=== PATIENT | male | born 1985 | race Caucasian/White ===

== ENCOUNTER 2019-01-07 09:09 | Emergency (ER) | payer OTHER ==
[~2019-01-07] VITALS: Ht 182.9 cm; Wt 81.8 kg
[~2019-01-07 09:09] MED LIST: IBUP-1051 PO; QUET200T PO; RISP1TAB13 PO; ZIPR20CA2 PO
[2019-01-07] MEDS ORDERED: normal saline 1000ML IV soln IV ONE (09:20)
--- NOTE | 2019-01-07 09:38 | NUR ---
poison control called Medardo at states that we should draw a mag, CPK, and hemoglobin anemia level in addition to the labs currently running. He states that we should watch out for reflex tachycardia, qt prolongation, seizures. Currently he recommends supporative care. a Q 3 HR aspirin level with chemistry level should be drawn. As well as a 4 hr tylenol level from time of ingestion. If his level is greater than 150 mg/dl he should be treated. Provider Noe notified.
[2019-01-07 09:50] LABS: BASOPHILS # (AUTO) 0.1 X10'3 (0-0.2); BASOPHILS % (AUTO) 0.9 % (0-1); EOSINOPHILS # (AUTO) 0.2 X10'3 (0-0.9); HEMATOCRIT 41.7 % (42.0-52.0); LYMPHOCYTES # (AUTO) 1.2 X10'3 (1.1-4.8); LYMPHOCYTES % (AUTO) 13.3 % (21-51); MEAN CORPUSCULAR HGB CONC 33.6 g/dL (33.0-36.5); MEAN CORPUSCULAR VOLUME 95.2 FL (78-98); MEAN PLATELET VOLUME 7.2 FL (7.4-10.4); MONOCYTES # (AUTO) 0.9 X10'3 (0-0.9); MONOCYTES % (AUTO) 10.1 % (2-12); NEUTROPHILS # (AUTO) 6.4 X10'3 (1.8-7.7); NEUTROPHILS % (AUTO) 73.7 % (42-75); PLATELET COUNT 397 X10'3 (140-440); RED BLOOD COUNT 4.38 X10'6 (4.70-6.10); RED CELL DISTRIBUTION WIDTH 13.4 % (11.5-14.5); WHITE BLOOD COUNT 8.7 X10'3 (4.5-11.0)
[2019-01-07 09:50] LABS: ABG BASE EXCESS -4.6 mmol/L (-2.0-3.0); ABG HCO3 18.7 mmol/L (22.0-26.0); ABG PCO2 (T) 29.1 mmHg (35.0-48.0); ABG PH (T) 7.422 (7.350-7.450); ABG PO2 (T) 107.8 mmHg (83-108); ALLEN'S TEST Positive; FCOHb 2.2 % (0.5-1.5); FMetHb 0.1 % (0.3-1.12); FO2Hb 95.7 % (94-100); PATIENT TEMPERATURE 36.1; TOTAL HEMOGLOBIN 14.5 G/dl (14.0-18.0)
--- NOTE | 2019-01-07 09:58 | NUR ---
sailaja salter at bedside.
[2019-01-07 10:11] LABS: ACETAMINOPHEN < 2.0 UG/ML (10-30); ALANINE AMINOTRANSFERASE 24 U/L (12-78); ALBUMIN 4.3 G/DL (3.4-5.0); ALBUMIN/GLOBULIN RATIO 1.3 (1.1-1.5); ALKALINE PHOSPHATASE 86 IU/L (46-116); ANION GAP 9 (8-16); ASPARTATE AMINO TRANSFERASE 21 U/L (10-37); BILIRUBIN,TOTAL 0.6 MG/DL (0.1-1.0); BLOOD UREA NITROGEN 25 MG/DL (7-18); BUN/CREATININE RATIO 22.1 (5.4-32.0); CALCIUM 8.8 MG/DL (8.5-10.1); CHLORIDE 104 MMOL/L (99-107); CREATININE 1.13 MG/DL (0.60-1.10); GLUCOSE 97 MG/DL (70-104); POTASSIUM 3.4 MMOL/L (3.5-5.1); SODIUM 137 MMOL/L (135-145); TOTAL CARBON DIOXIDE 24.3 MMOL/L (24-32); TOTAL PROTEIN 7.6 G/DL (6.4-8.2); eGFR 75 ML/MIN
[2019-01-07 10:17] LABS: ETHANOL < 0.010 GM/DL (0.0-0.010)
[2019-01-07 11:06] LABS: CREATINE KINASE 200 U/L (39-308); MAGNESIUM 1.6 MG/DL (1.5-2.4)
[2019-01-07 11:51] LABS: CLARITY,URINE CLEAR (Clear); COLOR,URINE YELLOW (Yellow); GLUCOSE, URINE NEGATIVE (Neg); KETONES,URINE 15 mg/dl (Neg); LEUKOCYTE ESTERASE ,URINE NEGATIVE (Neg); NITRITES, URINE NEGATIVE (Neg); OCCULT BLOOD,URINE TRACE-INTACT (Neg); PROTEIN,URINE NEGATIVE (Neg); UROBILINOGEN,URINE 0.2 E.U/dL (0.2-1.0)
[2019-01-07 11:52] LABS: UA COLLECTION TYPE NON-SPECIFIED
[2019-01-07 11:55] LABS: SQUAMOUS EPITHELIAL CELL,UR FEW /LPF (FEW)
[2019-01-07 11:56] LABS: BACTERIA,URINE 1+ /HPF (Neg); CAL OXALATE CRYSTALS 4+ /HPF (NEGATIVE); MUCUS STRANDS MODERATE /LPF (Neg); RBC,URINE 0-2 /HPF (0-2); WBC,URINE 0-4 /HPF (0-4)
[2019-01-07 11:57] LABS: FINE GRANULAR CAST 0-3 /LPF (NEGATIVE)
[2019-01-07 12:07] LABS: URINE AMPHETAMINE SCREEN POSITIVE (Neg); URINE BARBITUATE SCREEN NEGATIVE (Neg); URINE BENZODIAZEPINES SCREEN NEGATIVE (Neg); URINE CANNABINOID SCREEN POSITIVE (Neg); URINE COCAINE SCREEN NEGATIVE (Neg); URINE METHADONE SCREEN NEGATIVE (Neg); URINE OPIATE SCREEN NEGATIVE (Neg); URINE PHENCYCLIDINE SCREEN NEGATIVE (Neg)
[2019-01-07 12:09] LABS: ACETAMINOPHEN < 2.0 UG/ML (10-30)
--- NOTE | 2019-01-07 12:30 | NUR ---
pt came from room 8 in main er to er overflow room 24
--- NOTE | 2019-01-07 15:10 | NUR ---
Poison Control called to check on patients status and lab levels.
--- NOTE | 2019-01-07 15:36 | NUR ---
ROBIN(MOM) PHONE NUMBER [phone]
--- NOTE | 2019-01-07 18:10 | NUR ---
pt going to resp pad at 2000
--- NOTE | 2019-01-07 20:22 | NUR ---
The patient has been resting on his bed. He is delusional and is talking about waiting for the government to give him a large sum of money. He has been cooperative. He is unable to answer questions appropriately. His family did come in and visit him and brought him a small bag of clothes for when he leaves the hospital.
[2019-01-07 20:42] VITALS: BP 135/72
== END 2019-01-07 20:46 ==
LOC: ER 09:10
DX: T43.592A Poisoning by other antipsychotics and neuroleptics, intentional self-harm, initial encounter (principal); T39.012A Poisoning by aspirin, intentional self-harm, initial encounter; T39.1X2A Poisoning by 4-Aminophenol derivatives, intentional self-harm, initial encounter; R40.20 Unspecified coma; F20.9 Schizophrenia, unspecified; F15.10 Other stimulant abuse, uncomplicated; F41.9 Anxiety disorder, unspecified; F17.200 Nicotine dependence, unspecified, uncomplicated; F12.90 Cannabis use, unspecified, uncomplicated; Z88.0 Allergy status to penicillin; Z88.1 Allergy status to other antibiotic agents; Z88.6 Allergy status to analgesic agent; Z79.1 Long term (current) use of non-steroidal anti-inflammatories (NSAID); Z79.899 Other long term (current) drug therapy; Z59.0 Homelessness; Z60.2 Problems related to living alone; Z98.890 Other specified postprocedural states; Y92.89 Other specified places as the place of occurrence of the external cause
CPT/HCPCS: 36415; 36600; 71045; 80053; 80305; 80320; 80329; 81001; 82550; 82803; 82948; 83605; 83735; 84443; 85018; 85025; 87040; 93005; 99291; J7030

== ENCOUNTER 2020-07-30 14:06 | Inpatient (IN) | payer MEDICAID ==
[~2020-07-30] VITALS: Ht 182.9 cm; Wt 84.0 kg
--- NOTE | 2020-07-30 14:20 | NUR ---
patient to radiology.
--- NOTE | 2020-07-30 14:20 | NUR ---
patient back in the room.
[2020-07-30 14:46] LABS: BASOPHILS # (AUTO) 0.1 X10'3 (0-0.2); BASOPHILS % (AUTO) 1.1 % (0-1); EOSINOPHILS # (AUTO) 0.1 X10'3 (0-0.9); HEMOGLOBIN 14.5 g/dl (14.0-17.9); LYMPHOCYTES # (AUTO) 1.3 X10'3 (1.1-4.8); LYMPHOCYTES % (AUTO) 12.9 % (21-51); MEAN CORPUSCULAR HEMOGLOBIN 32.5 PG (27.0-31.0); MEAN CORPUSCULAR HGB CONC 34.4 g/dL (33.0-36.5); MEAN CORPUSCULAR VOLUME 94.3 FL (78-98); MEAN PLATELET VOLUME 7.1 FL (7.4-10.4); MONOCYTES # (AUTO) 0.8 X10'3 (0-0.9); MONOCYTES % (AUTO) 8.1 % (2-12); NEUTROPHILS % (AUTO) 76.9 % (42-75); PLATELET COUNT 390 X10'3 (140-440); RED BLOOD COUNT 4.46 X10'6 (4.70-6.10); RED CELL DISTRIBUTION WIDTH 13.3 % (11.5-14.5); WHITE BLOOD COUNT 10.3 X10'3 (4.5-11.0)
[2020-07-30 14:50] LABS: CLARITY,URINE CLOUDY (Clear); GLUCOSE, URINE NEGATIVE (Neg); KETONES,URINE 15 mg/dl (Neg); LEUKOCYTE ESTERASE ,URINE NEGATIVE (Neg); NITRITES, URINE POSITIVE (Neg); OCCULT BLOOD,URINE TRACE-INTACT (Neg); PH,URINE 5.5 (4.8-8.0); PROTEIN,URINE 30 mg/dl (Neg); UROBILINOGEN,URINE 0.2 E.U/dL (0.2-1.0)
[2020-07-30 14:53] LABS: COLOR,URINE DARK YELLOW (Yellow); UA COLLECTION TYPE CLN CATCH MIDSTREAM
[2020-07-30 14:57] LABS: BACTERIA,URINE 4+ /HPF (Neg); MUCUS STRANDS MANY /LPF (Neg); RBC,URINE 0-2 /HPF (0-2); SQUAMOUS EPITHELIAL CELL,UR FEW /LPF (FEW); WBC,URINE 50-100 /HPF (0-4)
[2020-07-30 14:58] LABS: SPERM MODERATE /HPF (NEGATIVE); URINE AMPHETAMINE SCREEN POSITIVE (Neg); URINE BARBITUATE SCREEN NEGATIVE (Neg); URINE BENZODIAZEPINES SCREEN NEGATIVE (Neg); URINE CANNABINOID SCREEN POSITIVE (Neg); URINE COCAINE SCREEN NEGATIVE (Neg); URINE METHADONE SCREEN NEGATIVE (Neg); URINE OPIATE SCREEN NEGATIVE (Neg); URINE PHENCYCLIDINE SCREEN NEGATIVE (Neg); WBC CLUMPS,URINE MODERATE /HPF (NEGATIVE)
[2020-07-30] MEDS ORDERED: CefTRIAXone 2gm/D5W 50ml BAG 50 ML IV ONE (15:05)
[2020-07-30 15:06] LABS: ALANINE AMINOTRANSFERASE 26 U/L (12-78); ALBUMIN 4.7 G/DL (3.4-5.0); ALBUMIN/GLOBULIN RATIO 1.5 (1.1-1.5); ALKALINE PHOSPHATASE 90 IU/L (46-116); ANION GAP 14 (8-16); ASPARTATE AMINO TRANSFERASE 27 U/L (10-37); BILIRUBIN,TOTAL 0.8 MG/DL (0.1-1.0); BLOOD UREA NITROGEN 25 MG/DL (7-18); BUN/CREATININE RATIO 20.5 (5.4-32.0); CALCIUM 9.3 MG/DL (8.5-10.1); CHLORIDE 102 MMOL/L (99-107); CREATININE 1.22 MG/DL (0.60-1.10); GLUCOSE 86 MG/DL (70-104); POTASSIUM 3.9 MMOL/L (3.5-5.1); SODIUM 141 MMOL/L (135-145); TOTAL CARBON DIOXIDE 24.8 MMOL/L (24-32); TOTAL PROTEIN 7.9 G/DL (6.4-8.2); eGFR 68 ML/MIN
[2020-07-30 15:10] LABS: CREATINE KINASE 311 U/L (39-308); ETHANOL < 0.010 GM/DL (0.0-0.010)
[2020-07-30] MEDS ORDERED: ringers solution, lacted 1,000 ML IV ONE (15:15)
[2020-07-30] MEDS ORDERED: potassium Cl 40MEQ/1/2NS 520ml 520 ML IV PRN ×2 (15:30)
[2020-07-30] MEDS ORDERED: magnesium Cl slow-release 64mg tablet PO PRN (15:30)
[2020-07-30] MEDS ORDERED: ondansetron/PF 4mg/2ml inj IV PRN (15:30)
[2020-07-30] MEDS ORDERED: magnesium 4gm in 100ml NS 100 ML IV PRN (15:30)
[2020-07-30] MEDS ORDERED: acetaminophen 325mg tablet PO PRN (15:30)
[2020-07-30] MEDS ORDERED: magnesium 2GM in 50ml NS 50 ML IV PRN (15:30)
[2020-07-30] MEDS ORDERED: normal saline 1000ml 1,000 ML IV SCH (15:30)
[2020-07-30] MEDS ORDERED: potassium Cl 20 mEq SR tablet PO PRN ×2 (15:30)
[2020-07-30] MEDS ORDERED: famotidine 20mg tablet PO ONE (15:40)
--- NOTE | 2020-07-30 18:32 | NUR ---
Patient in room ED 4. I have received report from GAURANG VILLA RN and had the opportunity to ask questions and will assume patient care upon arrival to room 355a. Addendum: 07/30/20 at 1833 by Dione Lorenzo RN Amended: Links added.
[2020-07-30 20:00] VITALS: BP 132/85
[2020-07-30] MEDS ORDERED: K and/or MAG REPLACEMENT MC SCH (20:00)
[2020-07-30] MEDS ORDERED: levoFLOXACIN-Levaquin 500mg/D5 100 ML IV SCH (20:25)
--- NOTE | 2020-07-30 22:20 | NUR ---
pt threatened to go ama if he did not get food tonight. Dr Whitlock notified and received a diet order than npo after midnight. pt ate after getting the order 2 turkey sandwiches, 3 jellos, 6 juices and then he answered admit questions, but refused a MRSA swab and said it been a few years since he has had his medications.
[2020-07-30] MEDS ORDERED: NO HOME MEDS (23:03)
--- NOTE | 2020-07-30 23:45 | NUR ---
pt aware he is no longer able to eat or drink.
[2020-07-31] VITALS: BP 110/67
--- NOTE | 2020-07-31 03:30 | NUR ---
pt had a shower for preop surgical prep. pt npo.
--- NOTE | 2020-07-31 04:00 | NUR ---
pt thinks he can poop it out tried to talk staff into giving him water to drink. explained what would happen with the co2 container and flash light in him can do and that we have xrays showing them in him, pt started pulling at his face at the sink saying he is taking the nahun wings off his face and arms that stefanie and another name is doing this to him and that we are talking with him, i stressed my concern for his safety and explained he can use the bathroom and don't flush it. he got dressed in pants watched him before going into the bathroom before able to stop him saw him gulp down water from the sink.
--- NOTE | 2020-07-31 04:35 | NUR ---
pt walked out of the bathroom said he got it out. pt handed Rn a bedpan with co2 cartridge and a flashight device and noted traces of blood on co2 cartridge pt insistent on leaving hospital ama.
--- NOTE | 2020-07-31 04:45 | NUR ---
pt iv dc'd intact after he signed [address] papers continue to explain importance for him to stay depite pooping cartridge and flashlight out and putting it in a bedpan for Rn. double bagged then put at station and security called to walk pt out and Dr Whitlock notified of pt going out AMA with escort. pt dressed and at times still says pulling feathers off him that satalight dishes keeping him from seeing his and kids. 456 pt left the floor walking out with his belongings with security.
--- NOTE | 2020-07-31 04:46 | NUR ---
noted no blood at rectal opening when pt allowed Rn to check to be sure he was ok,
[2020-07-31] MEDS ORDERED: famotidine 20mg tablet PO ONE (06:00)
--- NOTE | 2020-07-31 06:10 | NUR ---
dR Howard NOTIFIED PT POOPED THE CO2 CARTRIDGE AND LIGHT OUT AND THAT THEY ARE BAGGED, HE SAID TAKE PICTURES OF THEM AND THROW THEM AWAY. PICTURES TAKEN SET FOR MD TO SEE AND SET IN THE CHART ON PROGRESS NOTES. NURSING FORKLIFT PICKER AND NURSE ADMINISTRATOR'S NOTIFIED.
== END 2020-07-31 05:00 | disposition left against medical advice (07) | DRG 351 ==
LOC: ER 14:07 → ED HOLD 15:29 → EDBEDREQ 18:15 → SUR 3N 18:40
PROVIDERS: ADMIT Internal Medicine; ATTEND Internal Medicine
DX: M79.5 Residual foreign body in soft tissue (principal); F12.10 Cannabis abuse, uncomplicated; F15.959 Other stimulant use, unspecified with stimulant-induced psychotic disorder, unspecified; F17.210 Nicotine dependence, cigarettes, uncomplicated; Z20.828 Contact with and (suspected) exposure to other viral communicable diseases; F20.9 Schizophrenia, unspecified; Z60.2 Problems related to living alone; Z53.29 Procedure and treatment not carried out because of patient's decision for other reasons; K62.89 Other specified diseases of anus and rectum; N28.9 Disorder of kidney and ureter, unspecified; N39.0 Urinary tract infection, site not specified; F41.9 Anxiety disorder, unspecified; Z59.0 Homelessness; Z88.5 Allergy status to narcotic agent; Z88.0 Allergy status to penicillin; Z88.1 Allergy status to other antibiotic agents; Z79.899 Other long term (current) drug therapy
CPT/HCPCS: 36415; 74018; 80053; 80305; 80320; 81001; 82550; 82553; 84443; 85025; 87077; 87088; 87186; 87635; 93005; 96365; 99285; G0378; J0696; J1956; J7120

== ENCOUNTER 2020-10-09 15:51 | Emergency (ER) | payer MEDICAID ==
[~2020-10-09] VITALS: Ht 182.9 cm; Wt 78.9 kg
[~2020-10-09 15:51] MED LIST changes: -IBUP-1051 PO; +NO HOME MEDS; -QUET200T PO; -RISP1TAB13 PO; -ZIPR20CA2 PO
[2020-10-09 15:54] VITALS: BP 131/82
--- NOTE | 2020-10-09 16:35 | NUR ---
pa in room cutting off metal on his left 5th digit
[2020-10-09] MEDS ORDERED: acetaminophen 325mg tablet PO ONE (17:20)
[2020-10-09] MEDS ORDERED: CEPH250T PO (18:10)
[2020-10-09] MEDS ORDERED: TETanus/Pertussis (Acell)/Diphther VAC/PF (Tdap-Adult) 0.5ml syringe IMVAC ONE (18:10)
== END 2020-10-09 18:22 | disposition home or self-care (01) ==
LOC: ER 15:52
DX: R22.32 Localized swelling, mass and lump, left upper limb (principal); M79.645 Pain in left finger(s); F41.9 Anxiety disorder, unspecified; F20.9 Schizophrenia, unspecified; F12.90 Cannabis use, unspecified, uncomplicated; F15.90 Other stimulant use, unspecified, uncomplicated; Z72.89 Other problems related to lifestyle; Z60.2 Problems related to living alone; Z59.0 Homelessness; Z98.890 Other specified postprocedural states; Z88.5 Allergy status to narcotic agent; Z88.0 Allergy status to penicillin; Z88.1 Allergy status to other antibiotic agents; Z79.899 Other long term (current) drug therapy; W49.04XA Ring or other jewelry causing external constriction, initial encounter; Y93.89 Activity, other specified; Y92.89 Other specified places as the place of occurrence of the external cause; Y99.8 Other external cause status
CPT/HCPCS: 90471; 90715; 99284

== ENCOUNTER 2023-02-09 14:25 | Inpatient (IN) | payer MEDICAID ==
[~2023-02-09] VITALS: Ht 182.9 cm; Wt 72.3 kg
[2023-02-09 15:27] LABS: HEMOGLOBIN 14.5 g/dl (14.0-17.9); LYMPHOCYTES # (AUTO) 1.5 X10'3 (1.1-4.8)
[2023-02-09 15:29] LABS: BASOPHILS # (AUTO) 0.1 X10'3 (0-0.2); BASOPHILS % (AUTO) 1.7 % (0-1); EOSINOPHILS # (AUTO) 0.8 X10'3 (0-0.9); EOSINOPHILS % (AUTO) 12.5 % (0-6); HEMATOCRIT 43.7 % (42.0-52.0); LYMPHOCYTES % (AUTO) 23.6 % (21-51); MEAN CORPUSCULAR HEMOGLOBIN 31.5 PG (27.0-31.0); MEAN CORPUSCULAR HGB CONC 33.3 g/dL (33.0-36.5); MEAN CORPUSCULAR VOLUME 94.8 FL (78-98); MEAN PLATELET VOLUME 7.6 FL (7.4-10.4); MONOCYTES # (AUTO) 0.6 X10'3 (0-0.9); MONOCYTES % (AUTO) 10.2 % (2-12); NEUTROPHILS # (AUTO) 3.3 X10'3 (1.8-7.7); PLATELET COUNT 356 X10'3 (140-440); RED BLOOD COUNT 4.61 X10'6 (4.70-6.10); RED CELL DISTRIBUTION WIDTH 14.6 % (11.5-14.5); WHITE BLOOD COUNT 6.3 X10'3 (4.5-11.0)
[2023-02-09 15:43] LABS: ALKALINE PHOSPHATASE 84 IU/L (46-116); ASPARTATE AMINO TRANSFERASE 19 U/L (10-37); BILIRUBIN,TOTAL 0.3 MG/DL (0.1-1.0); CALCIUM 8.7 MG/DL (8.5-10.1); CHLORIDE 103 MMOL/L (99-107); ETHANOL < 0.010 GM/DL (0.0-0.010); GLUCOSE 108 MG/DL (70-104); POTASSIUM 3.6 MMOL/L (3.5-5.1); SODIUM 139 MMOL/L (135-145); TOTAL PROTEIN 6.4 G/DL (6.4-8.2)
[2023-02-09 16:02] LABS: ALANINE AMINOTRANSFERASE 22 U/L (12-78)
[2023-02-09 16:10] LABS: ANION GAP 11 (8-16); BLOOD UREA NITROGEN 23 MG/DL (7-18); BUN/CREATININE RATIO 24.2 (10.0-20.0); TOTAL CARBON DIOXIDE 24.8 MMOL/L (24-32)
[2023-02-09 16:11] LABS: ALBUMIN 3.6 G/DL (3.4-5.0); ALBUMIN/GLOBULIN RATIO 1.3 (1.1-1.5); CREATININE 0.95 MG/DL (0.60-1.10); eGFR 90 ML/MIN
--- NOTE | 2023-02-09 17:58 | NUR ---
Pt moved from ER main to ER overflow bed 22.
--- NOTE | 2023-02-09 18:00 | NUR ---
pt requested a second tray, tech faxed down to dietary for a second tray for pt.
--- NOTE | 2023-02-09 18:04 | NUR ---
Report given to RUPESH Francisco in Overflow.
--- NOTE | 2023-02-09 18:19 | NUR ---
surendra took urine to lab.
--- NOTE | 2023-02-09 18:30 | NUR ---
Assumed patient care. The patient is oriented X3, not to situation. W/D, he has good color. This patient is on a 5150 hold for 5150. Patient describes audible hallucinations, "telling me to hurt myself." Patient describes visual hallucinations, his father and his friends chasing him through the [place], etc. Patient tells this conventional underwriter that his father and all his friends, "everyone, is out to get me." The patient is cooperative with this conventional underwriter.
[2023-02-09 18:36] LABS: CLARITY,URINE SLIGHTLY CLOUDY (Clear); COLOR,URINE YELLOW (Yellow); GLUCOSE, URINE NEGATIVE (Neg); KETONES,URINE NEGATIVE (Neg); LEUKOCYTE ESTERASE ,URINE NEGATIVE (Neg); NITRITES, URINE POSITIVE (Neg); OCCULT BLOOD,URINE NEGATIVE (Neg); PROTEIN,URINE NEGATIVE (Neg); UROBILINOGEN,URINE 0.2 E.U/dL (0.2-1.0)
[2023-02-09 18:40] LABS: URINE AMPHETAMINE SCREEN POSITIVE (Neg); URINE BARBITUATE SCREEN NEGATIVE (Neg); URINE BENZODIAZEPINES SCREEN NEGATIVE (Neg); URINE CANNABINOID SCREEN POSITIVE (Neg); URINE COCAINE SCREEN NEGATIVE (Neg); URINE METHADONE SCREEN NEGATIVE (Neg); URINE OPIATE SCREEN NEGATIVE (Neg); URINE PHENCYCLIDINE SCREEN NEGATIVE (Neg)
[2023-02-09 18:45] LABS: UA COLLECTION TYPE VOIDED
[2023-02-09 18:47] LABS: BACTERIA,URINE 4+ /HPF (Neg); CAL OXALATE CRYSTALS 1+ /HPF (NEGATIVE)
[2023-02-09 18:48] LABS: RBC,URINE NONE SEEN /HPF (0-2)
[2023-02-09 18:49] LABS: MUCUS STRANDS NONE SEEN /LPF (Neg); SQUAMOUS EPITHELIAL CELL,UR NONE SEEN /LPF (FEW)
--- NOTE | 2023-02-09 19:35 | NUR ---
Patient is resting quietly, no distress. He ate dinner and was given additional snacks.
--- NOTE | 2023-02-09 20:15 | NUR ---
Client to be admitted to [facility] RM 331A for suicidal ideation per MARIO Maynard. Spoke with [facility] and am awaiting admit package.
[2023-02-09] MEDS: Melatonin 3mg tablet PO SCH (20:52)
--- NOTE | 2023-02-09 21:35 | NUR ---
Awaiting Rx from ER MD for UTI. MD is considering patients allergies and what to Rx.
--- NOTE | 2023-02-09 22:21 | NUR ---
Patient is sleeping quietly on his right side. In direct view from the nurses station.
[2023-02-09] MEDS: sulfamethoxazole/trimethoprim DS (800/160mg) tablet PO SCH (23:01)
--- NOTE | 2023-02-10 00:15 | NUR ---
Patient awoke, sat up in bed. He then returned to sleep. No distress.
--- NOTE | 2023-02-10 03:09 | NUR ---
Patient is sleeping on his left side. No distress.
[2023-02-10] MEDS ORDERED: mag hydrox/Alum hydrox/simeth 30ml oral suspension PO PRN (04:50)
[2023-02-10] MEDS ORDERED: magnesium hydroxide 30ml (MOM) UD suspension PO PRN (04:50)
[2023-02-10] MEDS ORDERED: loperamide 2mg capsule PO PRN (04:50)
[2023-02-10] MEDS ORDERED: acetaminophen 325mg tablet PO PRN ×2 (04:50)
--- NOTE | 2023-02-10 05:07 | NUR ---
SURGICAL TERRITORY MANAGER NOTE: LEGAL HOLD: 5150 for DTS REASON FOR ADMIT: Client reported suicidal ideation and paranoid delusions. Client stated "I want to run in front of a car." Client believe's he is being followed and is in danger. INTERVENTIONS: Admit assessments. RESPONSE: Client arrived on the unit at 05:08. Per Otis Augustine RN client slept 8 hours. He appeared drowsy and was taken to his room after weight and vital signs were obtained. Client was cooperative during admission. Addendum: 02/10/23 at 1224 by Sabrina Dixon RN [place] Suicide Risk Assessment was completed with pt. and he scores as a high risk, but is able to contract for safety while on the unit. This was endorsed to Kaelyn Norman 15min safety checks were ordered.
[2023-02-10 05:18] VITALS: BP 127/73
[2023-02-10 08:00] VITALS: BP 90/56
[2023-02-10] MEDS: sulfamethoxazole/trimethoprim DS (800/160mg) tablet PO SCH ×2 (08:06→20:05)
[2023-02-10] MEDS: nicotine 21mg patch - 24 hr TD SCH (08:08)
[2023-02-10] MEDS: NICOTINE POLACRILEX 2 MG LOZENGE BC PRN (12:10)
--- NOTE | 2023-02-10 16:26 | NUR ---
INFORMATION TECH NOTE: Miguel Angel LEGAL HOLD: 5150 for DTS REASON FOR ADMIT: Client reported suicidal ideation and paranoid delusions. Client stated "I want to run in front of a car." Client believe's he is being followed and is in danger. INTERVENTIONS: Medication management, calm environment, 1:1 assessment at the bedside, safe and supportive environment RESPONSE: Pt. received asleep and awoke to take his medications without hesitation. Pt. denies endorses IS without a plan, and AH stating I hear random people he also endorses VH stating I see people all around me he denies HI. Pt. has good eye contact, cooperative with staff, doesnt appear to be responding to IS. Pt. spent most of the shift out of his room sitting in common areas with hernesto. He ate all meals and was observed socializing briefly with female cohort. He took a shower, has fair hygiene, and wears unit scrubs. Plan: Medication adjustments toward mental health stabilization until safety planned. Addendum: 02/10/23 at 1720 by Jalen Guadarrama) RN FIBERGLASS AUTOBODY REPAIRER documentation: I have reviewed and agree with all interventions, assessments performed and documented by the FIBERGLASS AUTOBODY REPAIRER.
[2023-02-10] MEDS ORDERED: hydrOXYzine 25 MG tablet PO PRN (17:25)
[2023-02-10] MEDS ORDERED: quetiapine 100mg tablet PO PRN (17:25)
[2023-02-10] MEDS ORDERED: QUEtiapine 25mg tablet PO PRN (17:29)
[2023-02-10] MEDS: QUEtiapine 25mg tablet PO PRN (18:31)
[2023-02-10 19:25] VITALS: BP 122/88
[2023-02-10] MEDS: Melatonin 3mg tablet PO SCH (20:05)
--- NOTE | 2023-02-11 05:18 | NUR ---
Nursing Progress Note: Miguel Angel Problem: Client reported suicidal ideation and paranoid delusions. Client stated "I want to run in front of a car." Client believes he is being followed and is in danger. Interventions: Provided 1:1 assessment, Therapeutic conversation & active listening; Medication administration/education/monitoring, Maintained a safe & supportive environment; Clear & simple instructions; Direction & encouragement regarding performance of ADLs; monitored behaviors & maintained clear boundaries; Patient education & monitoring. Response: Received pt. at the , he stated he is having CAH and would like some medication. Pt was given PRN of Seroquel 50 mg. Pt went to bed and covered his head with a blanket. Captain Room Service had to wake pt. up to give him his HS medication. PRN of Seroquel 50mg given for insomnia. Pt said the voices were not as bad. They tell me negative things like I should kill myself or that people out there want to kill me. Pt is medication compliant tonight. Pt is isolative tonight because the voices are loud. Pt denies SI/HI/VH. Pt is paranoid as well as having CAH. Monitor for safety. Plan: Medication adjustments toward mental health stabilization until safety planned.
[2023-02-11 08:00] VITALS: BP 96/62
[2023-02-11 08:26] LABS: CHOL/HDL RATIO 2.6 (0.00-4.99); CHOLESTEROL 111 MG/DL (0-200); HDL CHOLESTEROL 43 MG/DL (35-60); HEMOGLOBIN A1C 5.6 % (4.5-6.2); LDL CHOLESTEROL 54 MG/DL (50-100); TRIGLYCERIDES 38 MG/DL (20-135)
[2023-02-11] MEDS: nicotine 21mg patch - 24 hr TD SCH (08:26)
[2023-02-11] MEDS: CARIPRAZINE 1.5 MG CAPSULE PO SCH (08:26)
[2023-02-11] MEDS: sulfamethoxazole/trimethoprim DS (800/160mg) tablet PO SCH ×2 (08:26→20:11)
--- NOTE | 2023-02-11 10:35 | NUR ---
Lab called: Pt was found to be MRSA+ from nasal swab results. Pt instructed on hand washing
[2023-02-11] MEDS: NICOTINE POLACRILEX 2 MG LOZENGE BC PRN (16:53)
--- NOTE | 2023-02-11 17:46 | NUR ---
NUCLEAR REACTOR OPERATOR NOTE: Miguel Angel LEGAL HOLD: 5150 for DTS REASON FOR ADMIT: Client reported suicidal ideation and paranoid delusions. Client stated "I want to run in front of a car." Client believes he is being followed and is in danger. INTERVENTIONS: Medication management, calm environment, 1:1 assessment at the bedside, safe and supportive environment RESPONSE: Received patient sleeping in bed at change of shift. Patient awakens for breakfast and then returns to bed for a long nap. Patient awakens and requests a shave, and he was able to shave his head and sierra. Patient was waiting for a shower. Patient states that he is suicidal and that he will take his life once he is discharged. He believes people are following him and sucking the life out of him. Discussed dangers of meth and paranoia being a side effect of meth. Patient having delusions, A/H. Informed patient that we would keep him safe on the unit, and he said thank you. Plan: Medication adjustments toward mental health stabilization until safety planned.
[2023-02-11 19:52] VITALS: BP 110/74
[2023-02-11] MEDS: QUEtiapine 25mg tablet PO PRN (20:11)
[2023-02-11] MEDS: Melatonin 3mg tablet PO SCH (20:11)
--- NOTE | 2023-02-12 04:02 | NUR ---
Nursing Progress Note: Problem: Client reported suicidal ideation and paranoid delusions. Client stated "I want to run in front of a car." Client believes he is being followed and is in danger. Interventions: Provided 1:1 assessment, Therapeutic conversation & active listening; Medication administration/education/monitoring, Maintained a safe & supportive environment; Clear & simple instructions; Direction & encouragement regarding performance of ADLs; monitored behaviors & maintained clear boundaries; Patient education & monitoring. Response: Patient is pleasant and cooperative with care; compliant with medication. Nicotine patch removed. PRN Quetiapine provided for AH provided. He denied SI, HI, VH this shift; reported auditory and tactile hallucinations of people trying to take over his body and telling him to kill himself. Patient expressed he sleeps to get away from his hallucinations. He self isolated to his room this shift. He was provided HS snack prior to bed; observed sleeping with no apparent difficulties. Plan: Medication adjustments toward mental health stabilization until safety planned.
--- NOTE | 2023-02-12 07:42 | NUR ---
Initial: Pt admit DX psychosis, SI, and meth abuse per EMR. PO ~88% avg initial regular diet meals w/ snacks meeting estimated needs. LBM 02/09 per EMR. No nutrition interventions at this time. Will continue to follow. Rec: 1. continue regular diet 2. bowel care per rx 3. weekly wt Addendum: 02/12/23 at [address] Amended: Links added.
[2023-02-12 08:00] VITALS: BP 103/60
[2023-02-12] MEDS: CARIPRAZINE 1.5 MG CAPSULE PO SCH (08:18)
[2023-02-12] MEDS: nicotine 21mg patch - 24 hr TD SCH (08:18)
[2023-02-12] MEDS: sulfamethoxazole/trimethoprim DS (800/160mg) tablet PO SCH (08:18)
--- NOTE | 2023-02-12 14:04 | NUR ---
DISCHARGE PLAN The plan is to discharge Pt. this afternoon to the [facility]. Pt plans to stay there while he gets attempts to move back to [place] where he was staying before. He needs to reach out to change his [employer]. Pt. plans to reach out to Probation and [employer] to put his plan in place while he stays at the [place]. Sarah Hernandez LCSW
[2023-02-12] MEDS ORDERED: CARI1.5C PO (14:29)
[2023-02-12] MEDS ORDERED: MELA3TAB39 PO (14:29)
[2023-02-12] MEDS ORDERED: SULF1TAB45 PO (14:29)
[2023-02-12] MEDS: NICOTINE POLACRILEX 2 MG LOZENGE BC PRN (14:35)
--- NOTE | 2023-02-12 16:48 | NUR ---
DISCHARGE: Patient discharged and escorted from the unit at approximately 1515. Discharge instructions reviewed with understanding verbalized. Personal belongings inventoried and returned to patient. He is A&O x4, calm and cooperative. Patient given bus pass ticket per request. He was escorted down to the front of the hospital by staff. Pt left without incident.
== END 2023-02-12 15:15 | disposition home or self-care (01) | DRG 751 ==
LOC: ER 14:26 → ED HOLD 20:20 → ADULT MH 02-10 04:39
PROVIDERS: ADMIT Psychiatry & Neurology Psychiatry; ATTEND Psychiatry & Neurology Psychiatry
DX: F33.2 Major depressive disorder, recurrent severe without psychotic features (principal); F22 Delusional disorders; R45.851 Suicidal ideations; Z20.822 Contact with and (suspected) exposure to COVID-19; F15.10 Other stimulant abuse, uncomplicated; F41.9 Anxiety disorder, unspecified; F17.210 Nicotine dependence, cigarettes, uncomplicated; N30.00 Acute cystitis without hematuria; Z59.00 Homelessness unspecified; Z88.0 Allergy status to penicillin; Z88.1 Allergy status to other antibiotic agents; Z91.51 Personal history of suicidal behavior; Z88.5 Allergy status to narcotic agent
CPT/HCPCS: 36415; 70450; 80053; 80061; 80305; 80320; 81001; 83036; 84443; 85025; 87077; 87081; 87088; 87186; 87811; 99285; G0378

== ENCOUNTER 2023-03-10 23:08 | Emergency (ER) | payer MEDICAID ==
[~2023-03-10] VITALS: Ht 182.9 cm; Wt 88.6 kg
[~2023-03-10 23:08] MED LIST changes: +CARI1.5C PO; +MELA3TAB39 PO; +SULF1TAB45 PO
[2023-03-10] MEDS ORDERED: olanzapine 10mg tablet PO STA (23:17)
[2023-03-10 23:26] VITALS: BP 117/84; PULSE 65; RESP 16; TEMP 98.1; O2SAT 97
== END 2023-03-11 00:16 ==
LOC: ER 23:09
DX: T18.5XXA Foreign body in anus and rectum, initial encounter (principal); F12.90 Cannabis use, unspecified, uncomplicated; F15.90 Other stimulant use, unspecified, uncomplicated; Z88.0 Allergy status to penicillin; Z88.5 Allergy status to narcotic agent; Z79.899 Other long term (current) drug therapy; Z79.2 Long term (current) use of antibiotics
CPT/HCPCS: 74018; 99283; 99284

== ENCOUNTER 2023-07-11 12:59 | Emergency (ER) | payer MEDICAID ==
[~2023-07-11] VITALS: Ht 182.9 cm; Wt 80.1 kg
[2023-07-11 13:06] VITALS: BP 158/118; PULSE 88; RESP 16; O2SAT 100
[2023-07-11] MEDS ORDERED: DOXYCYCLINE 100MG CAPSULE PO STA (14:49)
[2023-07-11] MEDS ORDERED: ibuprofen tablet 400 MG TABLET PO ONE (14:50)
[2023-07-11] MEDS ORDERED: IBUP-1984 PO (14:54)
[2023-07-11] MEDS ORDERED: DOXY-356 PO (14:54)
[2023-07-11 17:50] VITALS: TEMP 98.1
== END 2023-07-11 17:53 | disposition home or self-care (01) ==
LOC: ER 12:59
DX: K04.7 Periapical abscess without sinus (principal); F41.9 Anxiety disorder, unspecified; F15.10 Other stimulant abuse, uncomplicated; Z88.5 Allergy status to narcotic agent; Z88.0 Allergy status to penicillin; Z88.8 Allergy status to other drugs, medicaments and biological substances
CPT/HCPCS: 99283

== ENCOUNTER 2023-08-10 10:36 | Emergency (ER) | payer MEDICAID ==
[~2023-08-10] VITALS: Ht 182.9 cm; Wt 77.3 kg
[2023-08-10 11:39] LABS: BASOPHILS # (AUTO) 0.1 X10'3 (0-0.2); BASOPHILS % (AUTO) 1.3 % (0-1); EOSINOPHILS # (AUTO) 0.2 X10'3 (0-0.9); EOSINOPHILS % (AUTO) 3.4 % (0-6); HEMATOCRIT 42.3 % (42.0-52.0); HEMOGLOBIN 14.3 g/dl (14.0-17.9); LYMPHOCYTES # (AUTO) 0.9 X10'3 (1.1-4.8); LYMPHOCYTES % (AUTO) 14.3 % (21-51); MEAN CORPUSCULAR HEMOGLOBIN 32.7 PG (27.0-31.0); MEAN CORPUSCULAR HGB CONC 33.8 g/dL (33.0-36.5); MEAN CORPUSCULAR VOLUME 96.6 FL (78-98); MEAN PLATELET VOLUME 7.4 FL (7.4-10.4); MONOCYTES # (AUTO) 0.6 X10'3 (0-0.9); MONOCYTES % (AUTO) 9.2 % (2-12); NEUTROPHILS # (AUTO) 4.7 X10'3 (1.8-7.7); NEUTROPHILS % (AUTO) 71.8 % (42-75); PLATELET COUNT 412 X10'3 (140-440); RED BLOOD COUNT 4.38 X10'6 (4.70-6.10); RED CELL DISTRIBUTION WIDTH 13.2 % (11.5-14.5); WHITE BLOOD COUNT 6.5 X10'3 (4.5-11.0)
[2023-08-10 11:39] LABS: URINE AMPHETAMINE SCREEN NEGATIVE (Neg); URINE BARBITUATE SCREEN NEGATIVE (Neg); URINE BENZODIAZEPINES SCREEN NEGATIVE (Neg); URINE CANNABINOID SCREEN POSITIVE (Neg); URINE COCAINE SCREEN NEGATIVE (Neg); URINE METHADONE SCREEN NEGATIVE (Neg); URINE OPIATE SCREEN NEGATIVE (Neg); URINE PHENCYCLIDINE SCREEN NEGATIVE (Neg)
[2023-08-10 12:00] LABS: ALANINE AMINOTRANSFERASE 31 U/L (12-78); ALBUMIN 3.9 G/DL (3.4-5.0); ALBUMIN/GLOBULIN RATIO 1.1 (1.1-1.5); ALKALINE PHOSPHATASE 101 IU/L (46-116); ANION GAP 9 (8-16); ASPARTATE AMINO TRANSFERASE 23 U/L (10-37); BILIRUBIN,TOTAL 0.2 MG/DL (0.1-1.0); BLOOD UREA NITROGEN 18 MG/DL (7-18); BUN/CREATININE RATIO 16.8 (10.0-20.0); CALCIUM 9.2 MG/DL (8.5-10.1); CHLORIDE 102 MMOL/L (99-107); CREATININE 1.07 MG/DL (0.60-1.10); GLUCOSE 93 MG/DL (70-104); POTASSIUM 3.9 MMOL/L (3.5-5.1); SODIUM 141 MMOL/L (135-145); TOTAL CARBON DIOXIDE 30.5 MMOL/L (24-32); TOTAL PROTEIN 7.5 G/DL (6.4-8.2); eCRCL 104 ML/MIN; eGFR 78 ML/MIN
[2023-08-10 12:11] LABS: ETHANOL < 10 MG/DL (<10); THYROID STIMULATING HORMONE 1.38 ulU/ml (0.34-4.50)
[2023-08-10] MEDS ORDERED: NO HOME MEDS (14:05)
[2023-08-10 14:58] VITALS: BP 110/69; PULSE 80; RESP 16; TEMP 97.9; O2SAT 100
== END 2023-08-10 14:54 | disposition home or self-care (01) ==
LOC: ER 10:38
DX: R44.0 Auditory hallucinations (principal); Z20.822 Contact with and (suspected) exposure to COVID-19; F12.90 Cannabis use, unspecified, uncomplicated; F15.90 Other stimulant use, unspecified, uncomplicated; Z59.00 Homelessness unspecified; Z72.89 Other problems related to lifestyle; Z88.8 Allergy status to other drugs, medicaments and biological substances; Z88.0 Allergy status to penicillin; Z88.1 Allergy status to other antibiotic agents; Z79.899 Other long term (current) drug therapy
CPT/HCPCS: 36415; 80053; 80305; 80320; 84443; 85025; 87811; 99284

== ENCOUNTER 2023-11-12 06:05 | Emergency (ER) | payer MEDICAID, OTHER ==
[~2023-11-12] VITALS: Ht 182.9 cm; Wt 77.5 kg
[2023-11-12 06:37] LABS: BILIRUBIN,URINE NEGATIVE (Neg); CLARITY,URINE SLIGHTLY CLOUDY (Clear); COLOR,URINE YELLOW (Yellow); GLUCOSE, URINE NEGATIVE (Neg); KETONES,URINE NEGATIVE (Neg); LEUKOCYTE ESTERASE ,URINE NEGATIVE (Neg); NITRITES, URINE POSITIVE (Neg); OCCULT BLOOD,URINE NEGATIVE (Neg); PROTEIN,URINE NEGATIVE (Neg); UROBILINOGEN,URINE 0.2 E.U/dL (0.2-1.0)
[2023-11-12 06:45] LABS: UA COLLECTION TYPE CLN CATCH MIDSTREAM
[2023-11-12 06:47] LABS: BACTERIA,URINE 4+ /HPF (Neg); MUCUS STRANDS NONE SEEN /LPF (Neg); RBC,URINE NONE SEEN /HPF (0-2); SQUAMOUS EPITHELIAL CELL,UR FEW /LPF (FEW); WBC,URINE 20-30 /HPF (0-4)
[2023-11-12 06:55] LABS: URINE AMPHETAMINE SCREEN POSITIVE (Neg); URINE BARBITUATE SCREEN NEGATIVE (Neg); URINE BENZODIAZEPINES SCREEN NEGATIVE (Neg); URINE CANNABINOID SCREEN POSITIVE (Neg); URINE COCAINE SCREEN NEGATIVE (Neg); URINE METHADONE SCREEN NEGATIVE (Neg); URINE OPIATE SCREEN NEGATIVE (Neg); URINE PHENCYCLIDINE SCREEN NEGATIVE (Neg)
[2023-11-12 08:02] LABS: BASOPHILS # (AUTO) 0.1 X10'3 (0-0.2); BASOPHILS % (AUTO) 0.8 % (0-1); EOSINOPHILS # (AUTO) 0.1 X10'3 (0-0.9); EOSINOPHILS % (AUTO) 0.7 % (0-6); HEMOGLOBIN 12.6 g/dl (14.0-17.9); LYMPHOCYTES % (AUTO) 8.3 % (21-51); MEAN CORPUSCULAR HEMOGLOBIN 31.7 PG (27.0-31.0); MEAN CORPUSCULAR HGB CONC 33.3 g/dL (33.0-36.5); MEAN CORPUSCULAR VOLUME 95.2 FL (78-98); MEAN PLATELET VOLUME 7.4 FL (7.4-10.4); MONOCYTES # (AUTO) 0.8 X10'3 (0-0.9); MONOCYTES % (AUTO) 6.6 % (2-12); NEUTROPHILS % (AUTO) 83.6 % (42-75); PLATELET COUNT 329 X10'3 (140-440); RED BLOOD COUNT 3.99 X10'6 (4.70-6.10); RED CELL DISTRIBUTION WIDTH 13.8 % (11.5-14.5)
[2023-11-12 08:12] LABS: ALBUMIN 3.9 G/DL (3.4-5.0); ANION GAP 9 (8-16); BLOOD UREA NITROGEN 21 MG/DL (7-18); BUN/CREATININE RATIO 22.8 (10.0-20.0); CALCIUM 8.4 MG/DL (8.5-10.1); CHLORIDE 105 MMOL/L (99-107); CREATININE 0.92 MG/DL (0.60-1.10); ETHANOL < 10 MG/DL (<10); GLUCOSE 140 MG/DL (70-104); POTASSIUM 3.4 MMOL/L (3.5-5.1); SODIUM 141 MMOL/L (135-145); TOTAL CARBON DIOXIDE 27.1 MMOL/L (24-32); eCRCL 122 ML/MIN; eGFR > 90 ML/MIN
[2023-11-12 09:36] VITALS: BP 125/81; PULSE 115; RESP 16; TEMP 98.2; O2SAT 99
[2023-11-12] MEDS: DOXYCYCLINE 100MG CAPSULE PO SCH (09:47)
[2023-11-12] MEDS: sulfamethoxazole/trimethoprim DS (800/160mg) tablet PO ONE (09:47)
[2023-11-12] MEDS ORDERED: SULF1TAB49 PO (11:11)
[2023-11-12] MEDS ORDERED: DOXY-457 PO (11:11)
[2023-11-15 11:30] LABS: CHLAMYDIA TRACHOMATIS, NAA Negative (Negative)
== END 2023-11-12 11:31 | disposition home or self-care (01) ==
LOC: ER 06:06
DX: N39.0 Urinary tract infection, site not specified (principal); Z20.822 Contact with and (suspected) exposure to COVID-19; F19.10 Other psychoactive substance abuse, uncomplicated; F17.200 Nicotine dependence, unspecified, uncomplicated; F12.90 Cannabis use, unspecified, uncomplicated; F15.90 Other stimulant use, unspecified, uncomplicated; Z88.0 Allergy status to penicillin; Z88.5 Allergy status to narcotic agent; Z88.1 Allergy status to other antibiotic agents; Z79.899 Other long term (current) drug therapy; Z79.2 Long term (current) use of antibiotics
CPT/HCPCS: 36415; 80048; 80305; 80320; 81001; 85025; 87491; 87811; 99284

== ENCOUNTER 2024-04-09 01:20 | Emergency (ER) | payer MEDICAID ==
[~2024-04-09] VITALS: Ht 182.9 cm; Wt 76.0 kg
[2024-04-09] MEDS: LORazepam 1 MG tablet PO ONE (03:35)
[2024-04-09 03:36] VITALS: BP 140/100; PULSE 78; RESP 15; TEMP 99.6; O2SAT 100
== END 2024-04-09 04:58 | disposition home or self-care (01) ==
LOC: ER 01:20
DX: F15.10 Other stimulant abuse, uncomplicated (principal); F41.9 Anxiety disorder, unspecified; F17.200 Nicotine dependence, unspecified, uncomplicated; F12.90 Cannabis use, unspecified, uncomplicated; Z88.0 Allergy status to penicillin; Z88.1 Allergy status to other antibiotic agents; Z88.5 Allergy status to narcotic agent; Z79.2 Long term (current) use of antibiotics; Z79.899 Other long term (current) drug therapy
CPT/HCPCS: 99283